=== PATIENT | male | born 1955 | race African-American/Black ===

== ENCOUNTER 2021-05-18 13:24 | Inpatient (IN) | payer OTHER, MEDICAID ==
[~2021-05-18] VITALS: Ht 172.7 cm; Wt 103.8 kg
[~2021-05-18 13:24] MED LIST: AMLO-489 PO; ATENPOW10 PO; ENALAPRIL PO; HYDR25TA4 PO; IBUP800T26 PO; METH750T22 PO; OMEP20TA PO
[2021-05-18 14:33] LABS: Basophils # (auto) 0 10 ^3/uL (0-0.2); Basophils % (auto) 0.9 % (0.0-2.0); Eosinophils # (auto) 0 10 ^3/uL (0-0.8); Eosinophils % (auto) 0.4 % (0.0-7.0); Hematocrit 35.9 % (41.0-53.0); Hemoglobin 12.3 g/dL (13.5-17.5); Lymphocytes # (auto) 1.6 10 ^3/uL (0.4-5.4); Lymphocytes % (auto) 36.8 % (10.0-50.0); Mean Corpuscular Hemoglobin 33.7 pg (28.0-32.0); Mean Corpuscular Hgb Conc. 34.3 g/dL (32.0-36.0); Mean Corpuscular Volume 98.1 fL (80.0-100.0); Monocytes # (auto) 0.4 10 ^3/uL (0-1.3); Monocytes % (auto) 9.6 % (0.0-12.0); Neutrophils # (auto) 2.2 10 ^3/uL (1.6-8.6); Neutrophils % (auto) 52.3 % (37.0-80.0); Nucleated Red Blood Cells % 0.4 %; Red Blood Cells 3.66 10^6/uL (4.5-5.90); Red Cell Distribution Width 14.2 % (11.8-14.3); White Blood Cell 4.2 10^3/uL (4.4-10.8)
[2021-05-18 15:23] LABS: Amylase 61 U/L (25-115); Lipase 48 U/L (73-393)
[2021-05-18 15:26] LABS: Albumin 2.7 g/dL (3.4-5.0); Bilirubin, Total 1.1 mg/dL (0.2-1.0); Calcium 8.5 mg/dL (8.5-10.1); Total Protein 6.3 g/dL (6.4-8.2)
[2021-05-18 15:54] LABS: Lactic Acid w/Reflex 2.2 mmol/L (0.4-2.0)
[2021-05-18] MEDS ORDERED: POTASSIUM CHL 20MEQ/100ML 100 ML IV ONE (20:15)
[2021-05-18] MEDS ORDERED: ONDANSETRON HCL 4 MG/2 ML VIAL IV PRN (20:30)
[2021-05-18] MEDS ORDERED: POTASSIUM EFFERVESENT TAB 25 MEQ PO ONE (20:30)
[2021-05-18] MEDS ORDERED: POTASSIUM CHL 20MEQ/100ML 100 ML IV SCH (20:30)
[2021-05-18] MEDS ORDERED: MORPHINE SULFATE 4 MG/ML SYR/VIAL IV PRN (20:30)
[2021-05-18 21:20] LABS: Urine Amorphous Crystal FEW /hpf (None Seen); Urine Bacteria NONE SEEN /hpf (None Seen); Urine Blood 2+ /uL (Negative); Urine Mucus MANY (None Seen); Urine Specific Gravity 1.026 (1.001-1.035); Urine WBC 161 /hpf (0 - 3)
[2021-05-18] MEDS: SODIUM CHLORIDE 0.9% 1,000 ML IV SCH (23:15)
[2021-05-19] MEDS: cefTRIAXone 1GM/50ML D5W 50 ML IV SCH ×2 (01:59→21:00)
[2021-05-19] MEDS ORDERED: HYDR-4798 PO (02:06)
[2021-05-19] MEDS ORDERED: INFLUENZA QUAD 2021-2022 0.5 ML SYRG IM ONE (02:15)
[2021-05-19] MEDS ORDERED: PNEUMOCOCCAL VACC POLYS 25 MCG/0.5 ML VIAL IM ONE (02:15)
[2021-05-19] MEDS: SODIUM CHLORIDE 0.9% 1,000 ML IV SCH ×3 (04:50→21:30)
[2021-05-19 05:00] VITALS: BP 159/102
[2021-05-19 07:36] LABS: Basophils # (auto) 0.1 10 ^3/uL (0-0.2); Eosinophils # (auto) 0 10 ^3/uL (0-0.8); Hemoglobin 11.6 g/dL (13.5-17.5); Monocytes # (auto) 0.3 10 ^3/uL (0-1.3); Nucleated Red Blood Cells % 0.1 %; White Blood Cell 4.2 10^3/uL (4.4-10.8)
[2021-05-19 07:39] LABS: Basophils % (auto) 3.1 % (0.0-2.0); Eosinophils % (auto) 0.3 % (0.0-7.0); Hematocrit 33.6 % (41.0-53.0); Lymphocytes # (auto) 1.5 10 ^3/uL (0.4-5.4); Lymphocytes % (auto) 35.4 % (10.0-50.0); Mean Corpuscular Hemoglobin 33.9 pg (28.0-32.0); Mean Corpuscular Hgb Conc. 34.5 g/dL (32.0-36.0); Mean Corpuscular Volume 98.3 fL (80.0-100.0); Monocytes % (auto) 7.4 % (0.0-12.0); Neutrophils # (auto) 2.3 10 ^3/uL (1.6-8.6); Neutrophils % (auto) 53.8 % (37.0-80.0); Potassium 3.7 mmol/L (3.5-5.1); Red Blood Cells 3.42 10^6/uL (4.5-5.90); Red Cell Distribution Width 14.3 % (11.8-14.3)
[2021-05-19 08:02] LABS: Albumin 2.6 g/dL (3.4-5.0); BUN/Creatinine Ratio 15.3; Bilirubin, Total 1.2 mg/dL (0.2-1.0); Calcium 8.2 mg/dL (8.5-10.1)
[2021-05-19 08:20] VITALS: BP 136/95
[2021-05-19] MEDS: MULTIPLE VITAMINS W/ MINERALS TAB PO SCH (08:23)
[2021-05-19] MEDS: PANTOPRAZOLE 40 MG TAB PO SCH (08:23)
[2021-05-19] MEDS: ATENOLOL 50 MG TAB PO SCH (08:23)
[2021-05-19] MEDS: amLODIPine BESYLATE 5 MG TAB PO SCH (08:24)
[2021-05-19] MEDS: ENOXAPARIN SOD 40 MG/0.4 ML SYRINGE SC SCH (08:24)
[2021-05-19] MEDS ORDERED: LORazepam 2MG/ML-1ML VIAL IV ONE (10:45)
[2021-05-19] MEDS ORDERED: OMNIPAQUE ORAL SOLN 500ml 12mg/ml PO ONE (11:31)
[2021-05-19 12:15] VITALS: BP 130/97
[2021-05-19] MEDS ORDERED: IOHEXOL 300 MG/ML 100ML BOTTLE IJ ONE (13:41)
[2021-05-19 16:30] VITALS: BP 131/96
[2021-05-19 21:54] VITALS: BP 106/45
[2021-05-20] VITALS (7 sets, daily range): BP systolic 104–136; BP diastolic 55–95
[2021-05-20] MEDS: SODIUM CHLORIDE 0.9% 1,000 ML IV SCH ×3 (05:53→22:47)
[2021-05-20] MEDS: MULTIPLE VITAMINS W/ MINERALS TAB PO SCH (09:16)
[2021-05-20] MEDS: PANTOPRAZOLE 40 MG TAB PO SCH (09:17)
[2021-05-20] MEDS: amLODIPine BESYLATE 5 MG TAB PO SCH (09:17)
[2021-05-20] MEDS: ATENOLOL 50 MG TAB PO SCH (09:18)
[2021-05-20] MEDS: ENOXAPARIN SOD 40 MG/0.4 ML SYRINGE SC SCH (09:19)
[2021-05-20] MEDS: cefTRIAXone 1GM/50ML D5W 50 ML IV SCH (21:00)
[2021-05-21 05:00] VITALS: BP 124/87
[2021-05-21] MEDS: SODIUM CHLORIDE 0.9% 1,000 ML IV SCH ×2 (06:59→15:10)
[2021-05-21 09:00] VITALS: BP 139/95
[2021-05-21 09:34] LABS: INR 1.21 (0.9-1.15); Partial Thromboplastin Time 26.5 sec (23.6-33.0)
[2021-05-21] MEDS: ENOXAPARIN SOD 40 MG/0.4 ML SYRINGE SC SCH (10:00)
[2021-05-21] MEDS: MULTIPLE VITAMINS W/ MINERALS TAB PO SCH (10:18)
[2021-05-21] MEDS: amLODIPine BESYLATE 5 MG TAB PO SCH (10:18)
[2021-05-21] MEDS: PANTOPRAZOLE 40 MG TAB PO SCH (10:18)
[2021-05-21] MEDS: ATENOLOL 50 MG TAB PO SCH (10:19)
[2021-05-21 12:47] VITALS: BP 120/89
[2021-05-21 16:25] VITALS: BP 136/96
[2021-05-21] MEDS ORDERED: FERR-7 PO (16:47)
[2021-05-21] MEDS ORDERED: AMOX500T86 PO (16:47)
[2021-05-21 16:51] VITALS: BP 139/95
[2021-05-22 11:30] LABS: Carcinoembryonic Antigen 1.84 ng/mL (<5.0 OR =)
[2021-05-22 11:31] LABS: Folate (Folic Acid) 4.8 ng/mL (5.38-24)
[2021-05-22 13:17] LABS: Hepatitis A Ab IgM Negative; Hepatitis B Core IgM Negative
[2021-05-22 13:18] LABS: Hepatitis C Antibody Negative (Negative)
== END 2021-05-21 17:41 | disposition home or self-care (01) | DRG 641 ==
LOC: ER 13:24 → TELE 20:23 → TELE-WESTW 22:56
PROVIDERS: ADMIT Internal Medicine; ATTEND Hospitalist
DX: E87.6 Hypokalemia (principal); D61.818 Other pancytopenia; N39.0 Urinary tract infection, site not specified; E44.0 Moderate protein-calorie malnutrition; E87.2 Acidosis; K76.0 Fatty (change of) liver, not elsewhere classified; G89.29 Other chronic pain; D64.9 Anemia, unspecified; I10 Essential (primary) hypertension; Z20.822 Contact with and (suspected) exposure to COVID-19; J45.909 Unspecified asthma, uncomplicated; N20.0 Calculus of kidney; R53.81 Other malaise; N28.9 Disorder of kidney and ureter, unspecified; R62.7 Adult failure to thrive; Z82.49 Family history of ischemic heart disease and other diseases of the circulatory system; Z23 Encounter for immunization; Z68.23 Body mass index [BMI] 23.0-23.9, adult
CPT/HCPCS: 36415; 71045; 71250; 71260; 74176; 74177; 74181; 76775; 80053; 80074; 80320; 81001; 82105; 82150; 82306; 82378; 82607; 82746; 83605; 83690; 83735; 84154; 84425; 84443; 84484; 85025; 85610; 85730; 86301; 86703; 87040; 87086; 93005; G0378; J0696; J3480